=== PATIENT | male | born 1960 | race Two or more races ===

== ENCOUNTER 2017-07-10 10:20 | Emergency (ER) | payer MEDICARE, MEDICAID ==
[~2017-07-10] VITALS: Ht 182.9 cm; Wt 81.0 kg
[2017-07-10] MEDS ORDERED: RISP2TAB22 PO (10:34)
[2017-07-10] MEDS ORDERED: METF10002 PO (10:34)
[2017-07-10] MEDS ORDERED: LISI10TA5 PO (10:34)
[2017-07-10] MEDS ORDERED: GLIP10TA10 PO (10:34)
[2017-07-10] MEDS ORDERED: ATOR40TA70 PO (10:34)
[2017-07-10] MEDS ORDERED: BUPR200T2 PO (10:34)
[2017-07-10] MEDS ORDERED: ASPI-1159 PO (10:34)
[2017-07-10 12:50] VITALS: BP 145/80
[2017-07-10] MEDS ORDERED: BACITRACIN ZINC OINT UDPKT TOP ONE (14:45)
== END 2017-07-10 16:30 | disposition home or self-care (01) ==
LOC: ER 11:01
DX: S91.115A Laceration without foreign body of left lesser toe(s) without damage to nail, initial encounter (principal); E11.9 Type 2 diabetes mellitus without complications; I10 Essential (primary) hypertension; Z79.82 Long term (current) use of aspirin; Z87.891 Personal history of nicotine dependence; Z88.1 Allergy status to other antibiotic agents; Z98.890 Other specified postprocedural states; X58.XXXA Exposure to other specified factors, initial encounter; Y93.89 Activity, other specified; Y92.89 Other specified places as the place of occurrence of the external cause; Y99.8 Other external cause status
CPT/HCPCS: 73630; 99284